=== PATIENT | male | born 1985 | race Caucasian/White ===

== ENCOUNTER 2017-06-07 19:08 | Emergency (ER) | payer OTHER ==
[~2017-06-07] VITALS: Ht 172.7 cm; Wt 80.0 kg
[~2017-06-07 19:08] MED LIST: DULO20CA43 PO; LORA1TAB PO; SPIR100T31 PO
[2017-06-07 19:17] VITALS: Ht 172.7 cm; Wt 80.0 kg
[2017-06-07] MEDS ORDERED: HYDR-906 PO (20:19)
[2017-06-07] MEDS ORDERED: CEPH-443 PO (20:19)
[2017-06-07] MEDS ORDERED: IBUP-1542 PO (20:19)
--- NOTE | 2017-06-07 20:33 | ERD ---
ER Documentation Chief Complaint Date/Time DATE: 06/07/17 TIME: 20:28 Chief Complaint suture removal from RLE HPI 32 year-old male presents here in emergency department for suture removal of the right lower leg, patient had a procedure done in the right lower leg, had surgery done, he has sutures left in place for the last 2 months. Some of the sutures were already buried, here for suture removal. Patient denies any pain. Patient denies any open wounds. Patient denies any fever or chills. Patient denies any other symptoms. Patient denies any reinjury. Patient has occasional pain, from his chronic right lower leg pain at times sharp pain for/10 scale, ran out of his medications and wants a refill of his medications. Patient denies any reinjury. ROS All systems reviewed and are negative except as per history of present illness. Medications Home Meds Active Scripts Cephalexin* (Keflex*) 500 Mg Capsule, 500 MG PO QID for 5 Days, CAP Prov:AMILCAR DIAZ STRAND GALVANIZER 06/07/17 Hydrocodone/Acetaminophen (Tasley 5-325 Tablet) 1 Each Tablet, 1 TAB PO Q6H Y for SEVERE PAIN LEVEL 7-10, #20 TAB Prov:AMILCAR DIAZ STRAND GALVANIZER 06/07/17 Ibuprofen* (Motrin*) 600 Mg Tab, 600 MG PO Q6H Y for PAIN AND OR ELEVATED TEMP, #30 TAB Prov:AMILCAR DIAZ STRAND GALVANIZER 06/07/17 Reported Medications Spironolactone* (Spironolactone*) 100 Mg Tablet, 100 MG PO BID, TAB 08/02/16 Duloxetine Hcl* (Cymbalta*) 20 Mg Capsule.dr, 20 MG PO DAILY Y for PRN, CAP 08/02/16 Lorazepam* (Lorazepam*) 1 Mg Tablet, 0.5 MG PO HS Y for ANXIETY, #30 TAB 08/02/16 Allergies Allergies: Coded Allergies: No Known Allergy (Unverified , 08/02/16) PMhx/Soc History of Surgery: No Anesthesia Reaction: No Hx Neurological Disorder: No Hx Respiratory Disorders: No Hx Cardiac Disorders: No Hx Psychiatric Problems: Yes (anxiety) Hx Miscellaneous Medical Probl: No Hx Alcohol Use: No Hx Substance Use: No Hx Tobacco Use: No Smoking Status: Never smoker FmHx Family History: No coronary disease, No diabetes, No other Physical Exam Vitals Vital Signs Date Time Temp Pulse Resp B/P Pulse Ox O2 Delivery O2 Flow Rate FiO2 06/07/17 19:17 98.6 85 16 141/89 100 Physical Exam GENERAL: The patient is well developed and appropriate for usual state of health, in no apparent distress. CHEST: Clear to auscultation bilaterally. There are no rales, wheezes or rhonchi. HEART: Regular rate and rhythm. No murmurs, clicks, rubs or gallops. No S3 or S4. ABDOMEN: Soft, nontender and nondistended. Good bowel sounds. No rebound or guarding. No gross peritonitis. No gross organomegaly or masses. No Shi sign or McBurney point tenderness. BACK: No midline or flank tenderness. EXTREMITIES: Equal pulses bilaterally. There is no peripheral clubbing, cyanosis or edema. No focal swelling or erythema. Full range of motion. Grossly neurovascularly intact. NEURO: Alert and oriented. Cranial nerves 2-12 intact. Motor strength in all 4 extremities with 5/5 strength. Sensation grossly intact. Normal speech and gait. SKIN: Noted healing wounds in right lower leg, there is some sutures in place in the right lower leg, some of them are available and is in the superficial surface, this was removed without any difficulty, there is still some embedded sutures that are unable to be removed because of skin growth on top of it. Unable to remove it, is left in place. There is no apparent rash or petechia. The skin is warm and dry. HEMATOLOGIC AND LYMPHATIC: There is no evidence of excessive bruising or lymphedema. No gross cervical, axillary, or inguinal lymphadenopathy. Procedures/MDM Procedure note: After obtaining informed consent, the remaining sutures that were available was removed without any difficulty, some other sutures were tried to be removed but cannot be removed because of skin growth on top of it. These sutures weren't able to be removed, possibly may just, off on its own when skin sloughs off. There is no symptoms of any infection. Medical decision making: Patient is a healing wound, the sutures were left for almost 2 months, some skin growth has gone on top of it, the visible sutures were removed. No symptoms of any infection. No gaping of the wound. The symptoms of any neurovascular compromise. Patient was given for Keflex to prevent infection, ibuprofen and Tasley for his pain. Patient is advised to follow primary doctor to 3 days for reevaluation of symptoms. Patient is advised to return to emergency department for any worsening symptoms. Disposition: Home. Stable. Departure Diagnosis: Primary Impression: Retained suture Encounter type: initial encounter Qualified Code: T81.89XA - Retained suture , initial encounter Additional Impression: Encounter for removal of sutures Condition: Stable Patient Instructions: Suture Removal, No Complication AMILCAR DIAZ NP Jun 07, 2017 20:32
== END 2017-06-07 20:30 | disposition home or self-care (01) ==
LOC: FTE 19:08
DX: T81.89XA Other complications of procedures, not elsewhere classified, initial encounter (principal); Y81.3 Surgical instruments, materials and general- and plastic-surgery devices (including sutures) associated with adverse incidents
CPT/HCPCS: 99284

== ENCOUNTER 2017-08-09 14:37 | Emergency (ER) | payer OTHER ==
[~2017-08-09] VITALS: Ht 175.3 cm; Wt 82.5 kg
[~2017-08-09 14:37] MED LIST changes: +CEPH-443 PO; +HYDR-906 PO; +IBUP-1542 PO
[2017-08-09 14:40] VITALS: Ht 175.3 cm; Wt 82.5 kg
[2017-08-09] MEDS ORDERED: IBUPROFEN 600 MG TAB PO ONE (15:00)
--- NOTE | 2017-08-09 15:44 | RADRPT ---
PROCEDURE: XR Tibia and Fibula. CLINICAL INDICATION: Right lower leg pain TECHNIQUE: Two views of the right tibia and fibula are available for review. COMPARISON: None available FINDINGS: The patient is status post ORIF of tibial and distal fibular fractures. There are persistent large f racture lines in the mid tibia. Hardware is intact. In addition, there is a fracture at the proximal end of the fibular hardware. The age of these fractures is indeterminate based on this study. There is mild soft tissue swelling. IMPRESSION: 1. Status post ORIF of mid tibial and distal fibular fractures. 2. Persistent large fracture lines in the mid tibia, recommend correlation with prior imaging. 3. Fracture at the proximal aspect of the fibular hardware. Recommend correlation with prior imaglogan salcido RPTAT: HJBF .Joss Haq MD, Date Time Electronically viewed and signed by .Joss Haq MD, on 08/09/2017 15:43 .B/
[2017-08-09] MEDS ORDERED: IBUP-1542 PO (16:35)
[2017-08-09] MEDS ORDERED: HYDR-906 PO (16:35)
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
== END 2017-08-09 16:49 | disposition home or self-care (01) ==
LOC: FTE 14:37
DX: S89.91XA Unspecified injury of right lower leg, initial encounter (principal); W22.8XXA Striking against or struck by other objects, initial encounter; Y92.9 Unspecified place or not applicable
CPT/HCPCS: 73590; Z7502; Z7610

== ENCOUNTER 2017-09-10 10:54 | Emergency (ER) | payer OTHER ==
[~2017-09-10] VITALS: Wt 87.0 kg
[2017-09-10] MEDS ORDERED: AMOX500C2 PO (11:46)
[2017-09-10] MEDS ORDERED: CETI10CA PO (11:46)
[2017-09-10] MEDS ORDERED: IBUP-1542 PO (11:47)
--- NOTE | 2017-09-10 11:50 | ERD ---
ER Documentation Chief Complaint Date/Time DATE: 09/10/17 TIME: 11:49 Chief Complaint throat pain x2 days, ear pain, cough HPI Patient is a 32-year-old male who presents the emergency department for concerns of cough, congestion and tactile fevers 2 days. Patient states his cough is dry as well as productive at times. Patient reports throat pain. Patient denies any trismus, drooling or hyperextension of his neck. Patient reports tactile fevers. Patient denies taking any medication for symptoms. Patient does admit to recent marijuana use and is unsure if this is contributing to his symptoms. Patient states he has had strep throat 3 years ago and his symptoms feel similar at this time. No sick contacts. No recent travel. ROS All systems reviewed and are negative except as per history of present illness. Medications Home Meds Active Scripts Ibuprofen* (Motrin*) 600 Mg Tab, 600 MG PO Q6, #30 TAB Prov:ALBA SALOMON PA-C 09/10/17 Cetirizine Hcl* (Zyrtec*) 10 Mg Capsule, 10 MG PO DAILY, #10 TAB.CHEW Prov:ALBA SALOMON PA-C 09/10/17 Amoxicillin* (Amoxicillin*) 500 Mg Cap, 500 MG PO BID for 7 Days, CAP Prov:ALBA SALOMON PA-C 09/10/17 Hydrocodone/Acetaminophen (Robert Lee 5-325 Tablet) 1 Each Tablet, 1 TAB PO QHS Y for PAIN, #3 TAB Prov:JENNIFER WEBER PA-C 08/09/17 Ibuprofen* (Motrin*) 600 Mg Tab, 600 MG PO Q8, #30 TAB Prov:JENNIFER WEBER PA-C 08/09/17 Cephalexin* (Keflex*) 500 Mg Capsule, 500 MG PO QID for 5 Days, CAP Prov:AMILCAR DIAZ NP 06/07/17 Hydrocodone/Acetaminophen (Robert Lee 5-325 Tablet) 1 Each Tablet, 1 TAB PO Q6H Y for SEVERE PAIN LEVEL 7-10, #20 TAB Prov:AMILCAR DIAZ NP 06/07/17 Ibuprofen* (Motrin*) 600 Mg Tab, 600 MG PO Q6H Y for PAIN AND OR ELEVATED TEMP, #30 TAB Prov:AMILCAR DIAZ NP 06/07/17 Reported Medications Spironolactone* (Spironolactone*) 100 Mg Tablet, 100 MG PO BID, TAB 08/02/16 Duloxetine Hcl* (Cymbalta*) 20 Mg Capsule.dr, 20 MG PO DAILY Y for PRN, CAP 08/02/16 Lorazepam* (Lorazepam*) 1 Mg Tablet, 0.5 MG PO HS Y for ANXIETY, #30 TAB 08/02/16 Allergies Allergies: Coded Allergies: No Known Allergy (Unverified , 09/10/17) PMhx/Soc History of Surgery: No Anesthesia Reaction: No Hx Neurological Disorder: No Hx Respiratory Disorders: No Hx Cardiac Disorders: No Hx Psychiatric Problems: Yes (anxiety) Hx Miscellaneous Medical Probl: No Hx Alcohol Use: No Hx Substance Use: No Hx Tobacco Use: No Smoking Status: Never smoker Physical Exam Vitals Vital Signs Date Time Temp Pulse Resp B/P Pulse Ox O2 Delivery O2 Flow Rate FiO2 09/10/17 10:56 98.2 89 16 134/77 100 Physical Exam GENERAL: Well-developed, well-nourished female. Appears in no acute distress. HEAD: Normocephalic, atraumatic. No deformities or ecchymosis. EYE: Pupils equal, round, and reactive to light. EOMs intact. No conjunctival erythema. No eye discharge. ENT: External ear without any masses or tenderness. Auditory canals clear bilaterally. TM visualized bilaterally, non-erythematous, non-bulging. Nasal mucosa pink with no discharge. Oropharynx is 1+ tonsillar swelling bilaterally. Small area of exudates noted on the right tonsil. No uvula deviation. No kissing tonsils. Non tender to palpation of bilateral mastoid processes. NECK: Supple. No meningismus. Normal ROM of the neck. LUNG: Clear to auscultation bilaterally. No rhonchi, wheezing, rales or coarse breath sounds. HEART: Regular rate and rhythm. No murmurs, rubs or gallops. BACK: No midline tenderness. EXTREMITIES: Equal pulses bilaterally. No peripheral clubbing, cyanosis or edema. No unilateral leg swelling. NEUROLOGIC: Alert and oriented to person, place and time. Moving all four extremities. 5/5 strength in all extremities. Normal speech. Steady gait. SKIN: Normal color. Warm and dry. No rashes or lesions. Procedures/MDM MEDICAL DECISION MAKING: Patient is a 32-year-old male who presents with tactile fevers, throat pain, ear pain and a cough states he feels as if his symptoms are similar to when he had strep throat in the past.. Vital signs were reviewed. Patient was afebrile. Patient was not hypoxic. Given these findings, the patients presentation is most consistent with viral URI versus strep pharyngitis.. I have a much lower clinical concern for bacterial infections including pneumonia, meningitis, sinusitis, otitis externa, acute otitis media, epiglottitis or peritonsillar abscess. I will empirically treat the patient with a course of antibiotics and that he feels that his symptoms are similar to strep pharyngitis which she has had in the past.. Patient was advised to only fill his prescription if his symptoms persist. Prescription was postdated. PRESCRIPTIONS: Ibuprofen, Zyrtec, amoxicillin DISCHARGE: At this time, patient is stable for discharge and outpatient management. Supportive therapies such as OTC throat lozenges, salt water gurgles, popsicles and jello discussed. I have instructed the patient to follow-up with his/her primary care physician in 1-2 days. I have instructed the patient to promptly return to the ER for any new or worsening symptoms including increased pain, swelling, fever, nausea, vomiting, weakness or difficulty breathing. The patient and/or family expressed understanding of and agreement with this plan. All questions were answered. Home care instructions were provided. Disclaimer: Inadvertent spelling and grammatical errors are likely due to EHR/ dictation software use and do not reflect on the overall quality of patient care. Also, please note that the electronic time recorded on this note does not necessarily reflect the actual time of the patient encounter. Departure Diagnosis: Primary Impression: Strep pharyngitis Additional Impression: Viral URI Condition: Stable Patient Instructions: Pharyngitis, Strep (Presumed) Additional Instructions: Call your primary care doctor TOMORROW for an appointment during the next 1-2 days.See the doctor sooner or return here if your condition worsens before your appointment time. ALBA SALOMON PA-C Sep 10, 2017 11:50
== END 2017-09-10 12:08 | disposition home or self-care (01) ==
LOC: FTE 10:54
DX: J02.0 Streptococcal pharyngitis (principal)
CPT/HCPCS: 99283

== ENCOUNTER 2018-01-30 18:43 | Emergency (ER) | END 2018-01-30 19:50 | disposition home or self-care (01) ==